=== PATIENT | male | born 1980 | race Caucasian/White ===

== ENCOUNTER → 2023-06-25 | Outpatient (CLI) | payer OTHER, SELFPAY ==
--- NOTE | 2023-06-25 11:55 | RAD_ITS ---
STUDY: X-RAY - LEFT KNEE REASON FOR EXAM: Male, 43 years old. Lateral knee pain. TECHNIQUE: 4 view(s) of the knee. COMPARISON: None. FINDINGS: Normal visualized distal femur. Normal visualized proximal tibia and fibula. Normal proximal tibiofibular articulation. Normal medial femorotibial compartment. Normal lateral femorotibial compartment. Normal patellofemoral articulation. The soft tissue structures are unremarkable. RAD/Knee 4 or More Views IMPRESSION: Normal x-ray examination of the knee. Electronically Signed: Lance Bonds MD at 12:36 EDT ,
== END | disposition home or self-care (01) ==
PROVIDERS: Referring Provider Physician Assistant; Visit Provider Physician Assistant
DX: S86.912A Strain of unspecified muscle(s) and tendon(s) at lower leg level, left leg, initial encounter (principal)
CPT/HCPCS: 73564

== ENCOUNTER → 2023-08-08 | Outpatient (CLI) | payer OTHER, SELFPAY ==
--- NOTE | 2023-08-08 12:46 | MRI_ITS ---
STUDY: MRI LEFT KNEE REASON FOR EXAM: Male, 43 years old. Pain from work related injury, twisting injury. Foot/knee stayed in position while body twisted in a different direction, anterior pain. Feels unattached. Crunching noises when bending. Constant ache with sudden sharp pains. No prior surgery. TECHNIQUE: Standardized fat and water weighted pulse sequences were obtained in all 3 orthogonal planes. COMPARISON: Left knee radiographs dated 06/25/2023. FINDINGS: There is a small horizontal-oblique undersurface tear of the posterior horn of the medial meniscus (coronal PD series 5 image 12). Normal hyaline cartilage of the medial femorotibial compartment. Normal medial femoral condyle and tibial plateau. Normal medial collateral ligamentous complex (MCL). Normal distal semimembranosus, gracilis and semitendinosus tendons. Normal lateral meniscus. There is focal chondromalacia along the posterior nonweightbearing surface of the lateral femoral condyle with underlying subchondral edema/cyst formation (axial T2 series 2 image 9; sagittal T2 series 4 image 18). Normal proximal tibiofibular articulation. Normal lateral collateral (fibular) ligament. Normal popliteus tendon. Normal biceps femoris tendon. Normal anterior cruciate ligament (ACL). Normal posterior cruciate ligament (PCL). Normal congruent patellofemoral articulation. Normal hyaline cartilage of the patellofemoral compartment. Normal medial and lateral patellar retinaculum. Normal quadriceps tendon. Normal patellar tendon. Normal Hoffa''s fat pad. There is a small volume joint effusion. There is no popliteal cyst. There is minimal prepatellar bursitis, with adjacent subcutaneous soft tissue edema (sagittal T2 series 4 images 8-12). There is no acute fracture. MRI/Lower Ext Joint Only (Routine) IMPRESSION: Small horizontal-oblique undersurface tear of the posterior horn of the medial meniscus. Focal chondromalacia along the posterior nonweightbearing surface of the lateral femoral condyle with underlying subchondral edema/cyst formation. Small joint effusion. Minimal prepatellar bursitis, with adjacent subcutaneous soft tissue edema. Electronically Signed: Kali Mann MD at 14:26 EDT ,
== END | disposition home or self-care (01) ==
PROVIDERS: PCP Family Medicine; Referring Provider Physician Assistant; Visit Provider Physician Assistant
DX: S86.912A Strain of unspecified muscle(s) and tendon(s) at lower leg level, left leg, initial encounter (principal)
CPT/HCPCS: 73721

== ENCOUNTER 2023-09-14 09:30 | Outpatient (RCR) | payer OTHER, SELFPAY ==
--- NOTE | 2023-08-15 10:45 | HP.PTEVAL_ITS ---
Patient's Visit Information Visit Information Visit Information: JOSE JOHNSON is a 43 year old M referred to Physical Therapy by Dr. Crow Almendarez MD with a diagnosis of L knee meniscal tear.. Date of Evaluation: 08/15/23 Physical Therapist: Albino Newell, DPT, OCS, CSCS Visit Plan Frequency: 3x /Week Duration: 4-6 Weeks Plan: 3x/week for 4-6 weeks for... 1. ROM L knee and patella mobs 2. stretch HS and gastroc and quad to tolerance 3. strength L hip and knee and progression of funciton, walking, steps to tolerance May need TENS and ice and STM quad/HS until pain subsides. Pt having injection 08/16 which will determine his needs. 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 That was 06/21/23. Kept working. End of day was bad pain. and swollen. Went to doctor 4 days later and was still having a hard time walking. [facility] and they x ray and MRI whcih took 6 weeks. Saw damien due to tear in L knee meniscus. Been home waiting since the injury. Has been more tolerable. 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 Pain in last week is constant 6/10 medial front of knee. Sleep is not a problem. Spends day cleaning and running kids around. Doing some upper body. Enjoys boating and riding [place] but unable right now. has been able to do a little hunting. Damien wants PT and cortisone shots. PT does not want immediate surgery. Will get injection tomorrow. Pain L knee: Pain Intensity (Out of 10): 5 Pain Intensity Range: 5 and 6 Objective Objective: Walks with L antalgia and avoiding heel strike today but I and safe on firm surface, brace on and dons and doffs I. Tender to touch medial joint line and tristin medially. Steps are R LE only and needs rail, feels unsafe using L. patella movement tender on l and cautious. hip and ankle AROM WFL, knee AROM L 0-110, R knee 0-130. L knee hurts with extension end range and self limited at end range flexion due to pain. + bounce home - ant drawer, - post sag. reflexes 1/3 patella and achilles B sensation WNL to gross light touch. \strength hip flexion 4- L and 4 R, abd and ext 4- B. knee flexion 3+ L and 4 R, knee extension 3 L and 4+ on right. ankle strength 5/5 B in all 4 motions. Tightness present in HS and gastroc B. Balance/Special Test Scores Lower Extremity Functional Score: 38 Goals Goal 1:: 0-130+ L knee AROM without pain Goal Time Frame: 4-6 Weeks Goal 2:: Walk without antalgia and steps reciprocally without pain Goal Time Frame: 4-6 Weeks Goal 3:: I appropriate HEp to [facility] rehab progress Goal Time Frame: 4-6 Weeks Goal 4:: LEFS 60 Goal Time Frame: 4-6 Weeks Goal 5:: Pt ready to return to work Goal Time Frame: 4-6 Weeks Rehabilitation Potential Physical Therapy Diagnosis: L knee limited ROM, pain and weakness due to meniscal tear. Rehabilitation Potential: Questionable Anticipated Interventions Patient/Client Instruction: Educate patient on: Condition and Plan of Care For the Purpose of:: To decrease pain, To increase ROM, To improve nutrient delivery to tissue, To improve muscle performance and motor function, To increase tolerance to activity/condition/position and To improve gait and locomotor functions Therapeutic Exercise to Include: Strength training, Flexibilty training, Gait and locomotor training, Passive ROM and Active ROM For the Purpose of:: To decrease pain, To increase ROM, To improve nutrient delivery to tissue, To improve muscle performance and motor function, To increase tolerance to activity/condition/position, To improve ability of physical actions for home/community/work/leisure and To improve gait and locomotor functions Manual Therapy Techniques to Include: Mobilization and Soft tissue mobilization For the Purpose of:: To increase ROM TENS: Yes Cryotherapy (ice pack, ice massage): Yes For the Purpose of:: To decrease pain, To decrease swelling/inflammation, To increase ROM and To improve nutrient delivery to tissue Text: Thank you for the opportunity to evaluate your patient. For Medicare and Medicare HMO plans, please review the plan of care and approve it. It will need to be FAXED BACK to us at [phone] for Medicare purposes. For Medicare only, by signing this I certify the plan of care. Please let me know if there are questions or concerns regarding this plan of care. Physician Signature: Date:
--- NOTE | 2023-09-14 10:24 | HP.PTREVAL_ITS ---
Re-Evaluation Intro: Dr. Crow Almendarez MD, It has been my pleasure to treat JOSE JOHNSON over the last 9 visits for L knee meniscal tear.. Please see the progress note below for an update on the physical therapy plan of care! Subjective Subjective: Angry today. Has a catch point when he moves into flexion or extension. Pain is typically 4/10 most of time. Worse today. Saw doctr a week ago, wants another month of PT to avoid surgery. Injection helped pain but constant toothache pain still there. Objective Objective/Function: walks with L antalgia. Very painful with traction to L knee. , Painful end range of extension but able. Flexion hurts at 110 but can get to 126 today, hurts to come off of flexion with wincing. Steps can be reciprocal but painful to corin L. overall better but slow and still overly painful at rest and with certain movements. Goals appropriate for 4 more weeks with questionable prognosis. Plan Plan Plan: 3x/week for 4 more weeks if approval gained for 1. strength, avoid excessive HS strength to see if menisucus will heal, may do isometric HS gently. 2. continue ROM L knee and modalities including ice adn stim if painful at rest Pt is to avoid aggravating activities await new c9 and call wehn approved. Balance/Gait/Functional tests Balance/Special Test Scores Lower Extremity Functional Score: 25 Goals Goals Goal 1:: 0-130+ L knee AROM without pain Goal Time Frame: 4-6 Weeks Goal Progress: Progressing Goal 2:: Walk without antalgia and steps reciprocally without pain Goal Time Frame: 4-6 Weeks Goal Progress: Not Progressing Goal 3:: I appropriate HEp to [facility] rehab progress Goal Time Frame: 4-6 Weeks Goal Progress: Progressing Goal 4:: LEFS 60 Goal Time Frame: 4-6 Weeks Goal Progress: Not Progressing Goal 5:: Pt ready to return to work Goal Time Frame: 4-6 Weeks Anticipated Interventions Anticipated Interventions Patient/Client Instruction: Educate patient on: Condition and Plan of Care For the Purpose of:: To decrease pain, To increase ROM, To improve nutrient delivery to tissue, To improve muscle performance and motor function, To increase tolerance to activity/condition/position and To improve gait and locomotor functions Therapeutic Exercise to Include: Strength training, Flexibilty training, Gait and locomotor training, Passive ROM and Active ROM For the Purpose of:: To decrease pain, To increase ROM, To improve nutrient delivery to tissue, To improve muscle performance and motor function, To increase tolerance to activity/condition/position, To improve ability of physical actions for home/community/work/leisure and To improve gait and locomotor functions Manual Therapy Techniques to Include: Mobilization and Soft tissue mobilization For the Purpose of:: To increase ROM TENS: Yes Cryotherapy (ice pack, ice massage): Yes For the Purpose of:: To decrease pain, To decrease swelling/inflammation, To increase ROM and To improve nutrient delivery to tissue Re-Evaluation Ending Re-evaluation ending: Please do not hesitate to contact me at [phone] by phone or if you have questions or concerns regarding this new plan of care! Sincerely, Albino Newell, DPT, OCS, CSCS
--- NOTE | 2023-10-29 08:27 | HP.PTDCNRP_ITS ---
Patient Information Patient Information: JOSE JOHNSON was seen in my office for initial evaluation on 08/15/23. The following Plan of Care was established for this patient: POC Established Initial Frequency: 3x /Week Initial Duration: 4-6 Weeks Anticipated Interventions Patient/Client Instruction: Educate patient on: Condition and Plan of Care For the Purpose of:: To decrease pain, To increase ROM, To improve nutrient delivery to tissue, To improve muscle performance and motor function, To increase tolerance to activity/condition/position and To improve gait and lo comotor functions Therapeutic Exercise to Include: Strength training, Flexibilty training, Gait and locomotor training, Passive ROM and Active ROM For the Purpose of:: To decrease pain, To increase ROM, To improve nutrient delivery to tissue, To improve muscle performance and motor function, To increase tolerance to activity/condition/position, To improve ability of physical actions for home/community/work/leisure and To improve gait and locomotor functions Manual Therapy Techniques to Include: Mobilization and Soft tissue mobilization For the Purpose of:: To increase ROM TENS: Yes Cryotherapy (ice pack, ice massage): Yes For the Purpose of:: To decrease pain, To decrease swelling/inflammation, To increase ROM and To improve nutrient delivery to tissue Last Seen Last Seen: This patient was last seen in our office 09/14/23. Pertinent comments regarding their Physical therapy will appear below: Pt seen 9 visits according to c9 and was 50% better. he was to see doctor in an attempt to get a new c9 but did not receive further approval or scheudle any further visits of POC. At this point, it has been over 6 weeks and I will discontinue At this point I will be discontinuing this patient from physical therapy. I would be happy to see this patient again in the future if found appropriate by the physician. Thank you! Albino Newell, DPT, OCS, CSCS Balance/Gait/Functional tests Balance/Special Test Scores Lower Extremity Functional Score: 25
== END 2023-09-14 19:00 | disposition home or self-care (01) ==
LOC: PT 09:30
PROVIDERS: PCP Family Medicine; Referring Provider Orthopaedic Surgery Sports Medicine; Visit Provider Orthopaedic Surgery Sports Medicine
DX: S86.912D Strain of unspecified muscle(s) and tendon(s) at lower leg level, left leg, subsequent encounter (principal)
CPT/HCPCS: 97014; 97110; 97161; 97530; G0283

== ENCOUNTER 2023-11-07 10:58 | Day surgery (SDC) | payer OTHER, SELFPAY ==
[2023-11-07] VITALS (13 sets, daily range): BP systolic 127–168; BP diastolic 88–139; PULSE 79–101; RESP 14–16; TEMP 36.1–36.9; O2SAT 92–99; BMI 34.1
--- NOTE | 2023-11-07 | BUR_PTH ---
PATHOLOGY RESULTS PATIENT: JOSE JOHNSON LOC: [facility] [place] U#:[id number] AGE/SX: 43/M ROOM: RE11/07/[address]: Dr. Crow Almendarez MD : 1980 BED: DIS: 11/07/2023 SPEC #: [id number] RECD: 11/07/23 15:46 STATUS: GRACE RETanvir #: [id number] GUERO: 11/07/23 00:[address]: Crow Almendarez DEPT: SURGICAL PATHOLOGY RECD BY: Pablito Ge ENTERED: 11/08/23 08:46 SP TYPE: BURSA OT DR: Dr. Omar Mercado, Tissues: Bursa, NOS Procedures: Surgery Specimen Level III HEADER OPERATION: Left knee arthroscopy, debridement of prepatellar bursa PRE-OP DIAGNOSIS: Tear of left knee medial meniscus, left knee pain, stain of left knee, left prepatellar bursitis TISSUE SUBMITTED: Left prepatellar bursa MICROSCOPIC DIAGNOSIS Left prepatellar bursa, biopsy: Fibrosis with focal collagenization. No evidence of inflammation. AM:rosa 11/09/2023 MICROSCOPIC DESCRIPTION Slides are reviewed. GROSS DESCRIPTION Received in fixative is one container labeled with the patient's name and designated left prepatellar bursa. The specimen consists of three variable sized pieces of ahumada-light yellow soft, indurated tissue measuring in aggregate 2.5 x 2.0 x 0.3 cm. The entire specimen is submitted in one cassette. / SJ:rosa 11/08/2023 TC:5 CPT: 88636
--- NOTE | 2023-11-07 11:46 | PCM.HP.STD ---
HPI - General HPI Narrative JOSE JOHNSON, is a 43 M who presents for left knee arthroscopy, debridement prepatellar bursa, medial meniscus partial meniscectomy possible repair. rab, post op restrictions if repair 6 weeks wb in extension, and narcotic counselling. left knee marked. ok to proceed. no changes to h and p. MR#: [id number] Acct: [id number] Name: JOSE JOHNSON Rep #: [id number] : 1980 Provider: Dr. Crow Almendarez MD Age/Sex: 43/M [place] [facility] [place] Status: Signed Intake Vital Signs 08/14/2311:08 Height 5 ft 10 in Intake Visit Reasons: LEFT KNEE Chief Complaint: left knee Is patient in pain?: Yes Pain scale (1-10): 5 Allergies No Known Allergies Allergy (Verified 10/04/23 09:24) Medications NK 06/25/23 [History Confirmed 10/04/23] [facility] Medical History (Updated 10/04/23 @ 09:43 by Crow Almendarez MD) Bursitis, prepatellar, left Chronic neck and back pain Fatigue Left knee pain Shoulder pain Strain of left knee Tear of medial meniscus of left knee Social History household members: children Smoking Status: Current some day smoker tobacco type: smokeless tobacco alcohol intake: current alcohol intake frequency: a few times a month Alcohol type: beer and hard liquor HPI LEFT KNEE Details: This documentation accurately reflects the service provided and the decisions made by me, Dr. Crow Almendarez MD 10/04/23 0807. Part of today?s visit was documented by [ ], acting as scribe. JOSE JOHNSON is a 43 year old M here today for L knee pain, MM tear, comp claim, FU about 8 weeks since the injection. About 3 months since original injury. Patient is still having pain at the prepatellar area as well as medially like a crescent shaped . Patient continues to have mechanical symptoms and only minimal relief from the cortisone injection. Worse to bend the knee or kneel down. The physical therapy C9 was still pending approval according to the patient has not gone back in for therapy. Ortho Exam General General: Yes no acute distress Neurologic: Yes alert and Yes oriented x3 Psychologic: Yes reasonable and appropriate Right Knee Patella Translation: 2 Left Knee Skin/Wound: Yes CDI, No ecchymosis, No erythema and Yes swelling (mild prepatellar) Contralateral Normal: Yes Knee ROM: Yes ROM-Flexion 0-140 Examination: Yes med jt line tenderness, No Lat jt line tenderness, Yes TTP inf pole patella, Yes Crepitus, Yes Pain with flexion, Yes Ave's Test, Yes TTP Patellar tendon, No TTP Tibial tubercle, No TTP Pes Anserine and No Illiotibial band tenderness Quad Atrophy: No Stability: NML: Anterior Drawer, NML: Nancy, NML: Posterior Drawer, NML: Valgus 0, NML: Valgus 30, NML: Varus 0 and NML: Varus 30 Apprehension with Lateral Translation: No Patella Translation: 2 Patellar Tilt Normal: Yes Patella Grind: No KNEE: click at PF joint going into extension, nvi, normal gait and alignment, well conditioned individual Supplemental Info [facility] [address] [place] [id number] Lower Ext Joint Only (Routine) MR#: [id number] Acct: [id number] Name: JOSE JOHNSON Rep #: [id number] : 1980 M 43 From: Kali Mann MD PCP: Dr. Omar Mercado, DO Status: REG CLI Study: Lower Ext Joint Only (Routine) Date of Exam: 08/08/23 Exam# [id number] Ordering Dr: Prashant Garces STUDY: MRI LEFT KNEE REASON FOR EXAM: Male, 43 years old. Pain from work related injury, twisting injury. Foot/knee stayed in position while body twisted in a different direction, anterior pain. Feels unattached. Crunching noises when bending. Constant ache with sudden sharp pains. No prior surgery. TECHNIQUE: Standardized fat and water weighted pulse sequences were obtained in all 3 orthogonal planes. COMPARISON: Left knee radiographs dated 06/25/2023. FINDINGS: There is a small horizontal-oblique undersurface tear of the posterior horn of the medial meniscus (coronal PD series 5 image 12). Normal hyaline cartilage of the medial femorotibial compartment. Normal medial femoral condyle and tibial plateau. Normal medial collateral ligamentous complex (MCL). Normal distal semimembranosus, gracilis and semitendinosus tendons. Normal lateral meniscus. There is focal chondromalacia along the posterior nonweightbearing surface of the lateral femoral condyle with underlying subchondral edema/cyst formation (axial T2 series 2 image 9; sagittal T2 series 4 image 18). Normal proximal tibiofibular articulation. Normal lateral collateral ( fibular ) ligament. Normal popliteus tendon. Normal biceps femoris tendon. Normal anterior cruciate ligament (ACL). Normal posterior cruciate ligament (PCL). Normal congruent patellofemoral articulation. Normal hyaline cartilage of the patellofemoral compartment. Normal medial and lateral patellar retinaculum. Normal quadriceps tendon. Normal patellar tendon. Normal Hoffa''s fat pad. There is a small volume joint effusion. There is no popliteal cyst. There is minimal prepatellar bursitis, with adjacent subcutaneous soft tissue edema (sagittal T2 series 4 images 8-12). There is no acute fracture. MRI/Lower Ext Joint Only (Routine) IMPRESSION: Small horizontal-oblique undersurface tear of the posterior horn of the medial meniscus. Focal chondromalacia along the posterior nonweightbearing surface of the lateral femoral condyle with underlying subchondral edema/cyst formation. Small joint effusion. Minimal prepatellar bursitis, with adjacent subcutaneous soft tissue edema. Electronically Signed: Kali Mann MD at 14:26 EDT , Coding Level of Care Code Off vis,est,level 3 Diagnoses Tear of medial meniscus of left knee S83.242A Left knee pain M25.562 Strain of left knee S86.912A Bursitis, prepatellar, left M70.42 Assessment and Plan Assessment and Plan (1) Tear of medial meniscus of left knee: Status: Acute Plan: JOSE JOHNSON is a 43 year old M here today for L knee pain, MM tear, prepatellar bursitis... comp claim, FU about 8 weeks since the injection. About 3 months since original injury. Patient has had a reasonable trial of conservative management including 6 weeks of physical therapy and an intra-articular cortisone injection. Patient is wondering about next steps. My opinion surgical management of this would be left knee arthroscopy, debridement prepatellar bursa, medial meniscus partial meniscectomy possible repair. 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 The patient understands wished to proceed with surgery. He had no further questions and signed a consent form for surgery as well as possible need for blood products. Pros and cons risks and benefits were discussed with the patient including but not limited to infection, pain, stiffness, bleeding, damage to surrounding structures, neurovascular injury, recurrence or retear, failure or wear of hardware or fixation, instability, fracture, deep vein thrombosis and pulmonary embolism, anesthetic risks, , patient dissatisfaction, need for further surgery and other risks. Patient understood and wished to proceed with surgery, and signed the informed consent documentation. (2) Left knee pain: Status: Acute (3) Strain of left knee: Status: Acute (4) Bursitis, prepatellar, left: Status: Acute [facility] Medical History (Updated 10/25/23 @ 13:26 by Carole Dumont) Alcohol use Bursitis, prepatellar, left Fatigue Former smoker History of pain when walking History of steroid therapy Injury of head and neck Left knee pain Leg cramps Shoulder pain Strain of left knee Tear of medial meniscus of left knee Wears contact lenses Home Medications NK 06/25/23 [History Last Taken Unknown] Allergy/AdvReac Type Severity Reaction Status Date / Time No Known Allergies Allergy Verified 11/07/23 11:40 Surgical History (Updated 10/25/23 @ 13:26 by Carole Dumont) No history of previous surgery Social History household members: children Smoking Status: Former smoker alcohol intake: current alcohol intake frequency: a few times a month Alcohol type: beer and hard liquor Vital Signs Vital Signs Vital Signs: 11/07/23 11:41 11/07/23 11:41 Temperature 98.5 F Temperature Source Temporal Pulse Rate 79 Respiratory Rate 16 Respiratory Pattern Normal Blood Pressure Source Monitor Blood Pressure Position Semi-Fowlers Blood Pressure Location Left Arm Pulse Ox 98 Oxygen Delivery Method Room Air Weight Weight: 238 lb 1.588 oz Body Mass Index (BMI) 34.1
[2023-11-07] MEDS: Lactated Ringers 1,000 ML 15 ML IV (11:50)
[2023-11-07] MEDS: Cefazolin 2 GM in 0.9% Normal Saline (100mL Bag) 100 ML IV (12:06)
[2023-11-07] MEDS: Epinephrine (1 mg/ml) 1 MG/ML VIAL (12:45)
[2023-11-07] MEDS: Bupivacaine 0.25% 30 ML Vial (13:29)
--- NOTE | 2023-11-07 13:40 | OP.PCM_ITS ---
Problems Associated Problem List Diagnoses (1) Tear of medial meniscus of left knee: (2) Left knee pain: (3) Bursitis, prepatellar, left: Report of Operation Date of Procedure: 11/07/23 Pre-Operative Diagnosis: L knee medial meniscus tear, prepatellar bursitis Post-Operative Diagnosis: same Surgery/Procedure Performed:: L knee arthroscopy, debridement prepatellar bursa, repair medial meniscus Description of Surgical Findings:: horizontal posterior horn and mid body medial meniscus tear, prepatellar bursitis Surgeon: Crow Almendarez Type of Anesthesia: General and Local Anesthesiologist: Albino Downs Estimated Blood Loss (mL): 25 Description of Procedure: Patient brought the operating room theater. Placed supine on the table. General anesthesia induced. 2 g IV Ancef administered prior to start of procedure. Left lower extremity prepped and draped in usual sterile fashion. Stress positioner to patient's left side. Tourniquet applied to the thigh appropriately padded. SCD on the nonoperative leg. Prep solution chlorhexidine based was allowed to thoroughly dry over 3 minutes prior to draping. Preoperative timeout performed confirm the site patient and the surgery. I began by elevating the limb inflated tourniquet to 250 mmHg. Standard anterolateral and anteromedial arthroscopy portals as well as accessory anterolateral and anteromedial arthroscopy portals. Did a full diagnostic arthroscopy. Gutters entered no loose bodies. Cartilage in all 3 compartments was normal. Lateral meniscus was normal stable no tears solid to probing. ACL and PCL appeared normal debrided the ligamentum mucosum. Medial meniscus at the mid body extending towards the posterior horn there is a horizontal tear. This was slightly oblique in nature. The anterior and posterior roots were stable. I elected to do a meniscus repair rather than meniscectomy as that would have compromised the hoop stresses of the meniscus and been quite a bit of an excision. I used a meniscus rasp to stimulate healing at the tear site. I then used the Arthrex fiber stitch all inside meniscus implants to perform 5 vertical mattress sutures along the length of the tear. Tear was stable and solid. Case terminated arthroscopy x-rays and taken throughout the system and saved. I then turned my attention to the prepatellar bursectomy. Made a small anterior longitudinal incision over the prepatellar bursa area in the midline. Carried dissection down through skin and subcutaneous tissue to meticulous hemostasis. Excised the prepatellar bursa and sent this away for pathology. This was white tissue fairly firm in nature. Tourniquet let down hemostasis achieved wound thoroughly irrigated. Subcutaneous tissue closed with 2-0 Vicryl suture and skin with 3-0 Monocryl. 10 cc of quarter percent bupivacaine for local anesthesia was used. Skin cleaned with wet dry dressing complication of Steri- Strips Adaptic 4 x 4 gauze ABD dressing Anthony wrap and a hinged knee brace locked in full extension. Patient woken up from a general anesthetic transferred off the operating table and taken postanesthetic PACU. All sponge needle instrument counts were correct no complications. Plan to the patient weightbearing as tolerated in full extension passive range of motion with physical therapy only 0 to 90 degrees for the first 6 weeks. cpt 82725 and [id number]? Grafts/Implants Used: arthrex fiberstitch Complications none Admit VTE Documentation VTE Present on Admission: No VTE Mechan Device Prophylaxis: SCD's VTE Pharm Prophylaxis ordered?: No Reason prophylaxis not ordered:: Treatment Not Indicated Procedures Musculoskeletal [id number]: Other Procedure See Report
--- NOTE | 2023-11-07 13:50 | DCINST_ITS ---
Discharge Instructions Diet Discharge Diet: No restrictions Activity Discharge Activity: Use Crutches Weight Bearing Status: Weight bearing as tolerated Lifting Restrictions: WBAT in brace in full extension only (straight) +passive ROM 0-90 with PT Keep extremity elevated above heart level: Operative Extremity Dressing / Incision Call your doctor if your incision/area has: Continuous Slow Oozing, Sudden Increased Bleeding, Increased Pain/ Swelling, Increased Redness, Foul Smelling Discharge and Swelling at the incision site Change Dressing in: 2 days Cleanse incision/area with: Do not get Incision Wet Follow Up Care Please Follow Up With: Crow Almendarez MD When: 2 days Test Results: Test results from this visit will be discussed in further detail at your follow- up appointment, if applicable. Discharge Plan Admission Attending Provider: Crow Almendarez Primary Care Provider: Omar Mercado Instructions Patient Instructions: After Knee Arthroscopy Discharge Orders/Prescriptions Prescriptions: New oxycodone-acetaminophen [Percocet] 5-325 mg tablet 1 tab PO Q4H MDD 6 PRN (Reason: pain) 4 Days Qty: 20 0RF Referrals / Follow Up: Omar Mercado DO [Primary Care Provider] - Crow Almendarez MD [Med Staff - Active Staff] - Disposition Disposition (needs filled in before D/C Order can be placed): Home, Self Care
[2023-11-07] MEDS: Oxycodone/Apap 5/325 Tablet PO (15:12)
== END 2023-11-07 15:56 | disposition home or self-care (01) ==
LOC: SDC 10:59 → AC 11:00
PROVIDERS: PCP Family Medicine; Referring Provider Family Medicine; Visit Provider Orthopaedic Surgery Sports Medicine
PROC: (CPT 29870; principal; 2023-11-07 12:20)
DX: S83.242D Other tear of medial meniscus, current injury, left knee, subsequent encounter (principal); M70.42 Prepatellar bursitis, left knee; M94.262 Chondromalacia, left knee; M25.562 Pain in left knee; S86.912D Strain of unspecified muscle(s) and tendon(s) at lower leg level, left leg, subsequent encounter; Z87.891 Personal history of nicotine dependence; K21.9 Gastro-esophageal reflux disease without esophagitis
CPT/HCPCS: 29882; 29877; 01400; 88304; C1713; J7120; J2405

== ENCOUNTER 2023-12-19 09:30 | Outpatient (RCR) | payer OTHER, SELFPAY ==
--- NOTE | 2023-11-21 11:36 | HP.PTEVAL ---
Patient's Visit Information Visit Information Visit Information: JOSE JOHNSON is a 43 year old M referred to Physical Therapy by Dr. Crow Almendarez MD with a diagnosis of OTHER MEDIAL MENISCUS ,CURRENT INJURY ,LEFT KNEE ,PREPATELLAR BURSITIS. . Date of Evaluation: 11/21/23 Physical Therapist: Moisés Drake, PT, Cert MDT, OCS Visit Plan Frequency: 3x /Week Duration: 6 Weeks Plan: * s/p left knee arthroscopy debridement prepatellar bursa and repair medial meniscus on 11/07 * *WBAT with brace in extension ,okay ROM 0-90 degrees * *SEE GUIDLINES FOR PRGRESSION* PT INTERVTIONS ROM 90 DEGREES OPEN CHAIN 6WEEKS ,MAT EXERCISES(,PATEALLA MOBS , PROGRESSION TO STRENGTHNEING QUADS /HAMS/HIP CLOSED CHAIN 6 WEEKS , GAUT /BALANCE TRAINING ,,BIKE AND CP Subjective Subjective: This 43 y/o male presents to physical therapy with with left knee medial meniscus repair with debridement prepatellar bursitis on at [facility] by Erickson and d/c DOS with crutches with WBAT. Patient seen yesterday wean from crutches brace locked in extension with gait and at all times even sleeping ,okay ROM to 90 degrees . Removing for ice and bathing . Patient stopped Percocet. Patient initially injury at work Jul 11 picking lynette hammer and turning felt tearing. [facility] then f/u with Dr. Almendarez and tried ~ 1month PT . Patient had MRI showed meniscus tear. Patient uses ice for pain edema. Sleeping okay. Patient has difficulty with all ADLS and function and unable to RTW. RTD 12/17/23. Patient condition affects QOL and function and RTW. Patient goals to RTW. SOCIAL: VOCATION: Labor heavy Highway construction Pain Left Knee: Pain Intensity (Out of 10): 4 Pain Intensity Range: 10 Objective Objective: POSTURE: WFL GAIT: ambulates with WBAT LLE with locked in extension SKIN ICISION : well approximate EDEMA: joint line 41 cm 6 ABOVE JOINT LINE: 48.5 cm AROM: 0-70 degrees supine knee flexion MMT: ( PEAK FORCE) 0 NT STAIRS : one step at time PATELLA MOBILITY: mod tight superior/inferior and medial/lateral glides Balance/Special Test Scores Lower Extremity Functional Score: 25 Goals Goal 1:: Patient to be I with HEP for meniscus repair Goal Time Frame: 8-12 Weeks Goal 2:: Patient to improve AROM 0-135 degrees supine knee flexion for stairs Goal Time Frame: 8-12 Weeks Goal 3:: Patient to normalize gait to RTW Goal Time Frame: 8-12 Weeks Goal 4:: Patient to improve peak force quads/hams by 25-30 # strength to improve function and RTW Goal Time Frame: 8-12 Weeks Goal 5:: Patient to improve LFES score by 15-20 points to improve QOL and RTW Goal Time Frame: 8-12 Weeks Goal 6:: Patient to demonstrate 75 % improvement with function and RTW Goal Time Frame: 8-12 Weeks Rehabilitation Potential Physical Therapy Diagnosis: This patient underwent s/p left knee arthroscopy debridement prepatellar bursa and repair medial meniscus on 12/08 with knee brace locked in extension 6 weeks and WBAT LLE brace locked in extension thus impairments with decrease ROM ,weakness ,decrease gait and RTW thus benefit from PT Rehabilitation Potential: Good Anticipated Interventions Patient/Client Instruction: Educate patient on: Condition and Plan of Care For the Purpose of:: To decrease pain, To increase ROM, To improve muscle performance and motor function, To improve ability to perform ADL's, To increase tolerance to activity/condition/position, To improve performance and independence with ADL's, To improve ability of physical actions for home/community/work/leisure, To improve gait and locomotor functions, To improve health of tissue, To decrease soft tissue restriction, To improve balance and Other Other: RTW Therapeutic Exercise to Include: Strength training, Endurance training, Balance training, Flexibilty training, Gait and locomotor training, Passive ROM and Active ROM Comment: QUADS/HAMS/HIP For the Purpose of:: To decrease pain, To increase ROM, To improve muscle performance and motor function, To increase tolerance to activity/condition/position, To improve performance and independence with ADL's, To improve ability of physical actions for home/community/work/leisure, To improve gait and locomotor functions, To improve health of tissue, To decrease soft tissue restriction, To increase flexibility/ROM, To improve endurance, To improve balance and Other Other: RTW TENS: Yes IF ES: Yes Cryotherapy (ice pack, ice massage): Yes Thermo therapy (hot pack): Yes Ultrasound (thermal/non thermal): Yes For the Purpose of:: To decrease pain, To increase ROM, To improve health of tissue and To decrease soft tissue restriction Text: Thank you for the opportunity to evaluate your patient. For Medicare and Medicare HMO plans, please review the plan of care and approve it. It will need to be FAXED BACK to us at [phone] for Medicare purposes. For Medicare only, by signing this I certify the plan of care. Please let me know if there are questions or concerns regarding this plan of care. Physician Signature: Date:
--- NOTE | 2023-11-23 08:24 | HP.PTEVAL_ITS ---
Patient's Visit Information Visit Information Visit Information: JOSE JOHNSON is a 43 year old M referred to Physical Therapy by Dr. Crow Almendarez MD with a diagnosis of OTHER MEDIAL MENISCUS ,CURRENT INJURY ,LEFT KNEE ,PREPATELLAR BURSITIS. Date of Evaluation: 11/21/23 Physical Therapist: Moisés Drake, PT, Cert MDT, OCS Visit Plan Frequency: 3x /Week Duration: 6 Weeks Plan: * s/p left knee arthroscopy debridement prepatellar bursa and repair medial meniscus on 11/07 * *WBAT with brace in extension ,okay ROM 0-90 degrees * *SEE GUIDLINES FOR PRGRESSION* PT INTERVTIONS ROM 90 DEGREES OPEN CHAIN 6WEEKS,MAT EXERCISES(,PATEALLA MOBS , PROGRESSION TO STRENGTHNEING QUADS /HAMS/HIP CLOSED CHAIN 6 WEEKS (0-60 DEGREES) , GAIT /BALANCE TRAINING ,,BIKE AND CP Subjective Subjective: This 43 y/o male presents to physical therapy with with left knee medial meniscus repair with debridement prepatellar bursitis on at [facility] by Erickson and d/c DOS with crutches with WBAT. Patient seen yesterday wean from crutches brace locked in extension with gait and at all times even sleeping ,okay ROM to 90 degrees . Removing for ice and bathing . Patient stopped Percocet. Patient initially injury at work Jul 11 picking lynette hammer and turning felt tearing. [facility] then f/u with Dr. Almendarez and tried ~ 1month PT . Patient had MRI showed meniscus tear. Patient uses ice for pain edema. Sleeping okay. Patient has difficulty with all ADLS and function and unable to RTW. RTD 12/17/23. Patient condition affects QOL and function and RTW. Patient goals to RTW. SOCIAL: VOCATION: Labor heavy Highway construction Pain Left Knee: Pain Intensity (Out of 10): 4 Pain Intensity Range: 10 Objective Objective: POSTURE: WFL GAIT: ambulates with WBAT LLE with locked in extension SKIN ICISION : well approximate EDEMA: joint line 41 cm 6 ABOVE JOINT LINE: 48.5 cm AROM: 0-70 degrees supine knee flexion MMT: ( PEAK FORCE) 0 NT STAIRS : one step at time PATELLA MOBILITY: mod tight superior/inferior and medial/lateral glides Balance/Special Test Scores Lower Extremity Functional Score: 25 Goals Goal 1:: Patient to be I with HEP for meniscus repair Goal Time Frame: 8-12 Weeks Goal 2:: Patient to improve AROM 0-135 degrees supine knee flexion for stairs Goal Time Frame: 8-12 Weeks Goal 3:: Patient to normalize gait to RTW Goal Time Frame: 8-12 Weeks Goal 4:: Patient to improve peak force quads/hams by 25-30 # strength to improve function and RTW Goal Time Frame: 8-12 Weeks Goal 5:: Patient to improve LFES score by 15-20 points to improve QOL and RTW Goal Time Frame: 8-12 Weeks Goal 6:: Patient to demonstrate 75 % improvement with function and RTW Goal Time Frame: 8-12 Weeks Rehabilitation Potential Physical Therapy Diagnosis: This patient underwent s/p left knee arthroscopy debridement prepatellar bursa and repair medial meniscus on 12/08 with knee brace locked in extension 6 weeks and WBAT LLE brace locked in extension thus impairments with decrease ROM ,weakness ,decrease gait and RTW thus benefit from PT Rehabilitation Potential: Good Anticipated Interventions Patient/Client Instruction: Educate patient on: Condition and Plan of Care For the Purpose of:: To decrease pain, To increase ROM, To improve muscle performance and motor function, To improve ability to perform ADL's, To increase tolerance to activity/condition/position, To improve performance and independence with ADL's, To improve ability of physical actions for home/community/work/leisure, To improve gait and locomotor functions, To improve health of tissue, To decrease soft tissue restriction, To improve balance and Other Other: RTW Therapeutic Exercise to Include: Strength training, Endurance training, Balance training, Flexibilty training, Gait and locomotor training, Passive ROM and Active ROM Comment: QUADS/HAMS/HIP For the Purpose of:: To decrease pain, To increase ROM, To improve muscle performance and motor function, To increase tolerance to activity/condition/position, To improve performance and independence with ADL's, To improve ability of physical actions for home/community/work/leisure, To improve gait and locomotor functions, To improve health of tissue, To decrease soft tissue restriction, To increase flexibility/ROM, To improve endurance, To improve balance and Other Other: RTW TENS: Yes IF ES: Yes Cryotherapy (ice pack, ice massage): Yes Thermo therapy (hot pack): Yes Ultrasound (thermal/non thermal): Yes For the Purpose of:: To decrease pain, To increase ROM, To improve health of tissue and To decrease soft tissue restriction Text: Thank you for the opportunity to evaluate your patient. For Medicare and Medicare HMO plans, please review the plan of care and approve it. It will need to be FAXED BACK to us at [phone] for Medicare purposes. For Medicare only, by signing this I certify the plan of care. Please let me know if there are questions or concerns regarding this plan of care. Physician Signature: Date:
--- NOTE | 2024-02-06 10:55 | HP.PTDCNRP_ITS ---
Patient Information Patient Information: JOSE JOHNSON was seen in my office for initial evaluation on 11/21/23. The following Plan of Care was established for this patient: POC Established Initial Frequency: 3x /Week Initial Duration: 6 Weeks Anticipated Interventions Patient/Client Instruction: Educate patient on: Condition and Plan of Care For the Purpose of:: To decrease pain, To increase ROM, To improve muscle performance and motor function, To improve ability to perform ADL's, To increase tolerance to activity/condition/position, To improve performance and ind ependence with ADL's, To improve ability of physical actions for home/community/work/leisure, To improve gait and locomotor functions, To improve health of tissue, To decrease soft tissue restriction, To improve balance and Other Other: RTW Therapeutic Exercise to Include: Strength training, Endurance training, Balance training, Flexibilty training, Gait and locomotor training, Passive ROM and Active ROM For the Purpose of:: To decrease pain, To increase ROM, To improve muscle performance and motor function, To increase tolerance to activity/condition/position, To improve performance and independence with ADL's, To improve ability of physical actions for home/community/work/leisure, To improve gait and locomotor functions, To improve health of tissue, To decrease soft tissue restriction, To increase flexibility/ROM, To improve endurance, To improve balance and Other Other: RTW TENS: Yes IF ES: Yes Cryotherapy (ice pack, ice massage): Yes Thermo therapy (hot pack): Yes Ultrasound (thermal/non thermal): Yes For the Purpose of:: To decrease pain, To increase ROM, To improve health of tissue and To decrease soft tissue restriction Last Seen Last Seen: This patient was last seen in our office . Pertinent comments regarding their Physical therapy will appear below: Patient was seen for PT for s/p left knee arthroscopy debridement prepatellar bursa and repair medial meniscus on 11/07 for 10 visits for ROM and strength Dr meade patient return to work light duty At this point I will be discontinuing this patient from physical therapy. I would be happy to see this patient again in the future if found appropriate by the physician. Thank you! Moisés Drake, PT, Cert MDT, OCS Balance/Gait/Functional tests Balance/Special Test Scores Lower Extremity Functional Score: 25
== END 2023-12-19 19:00 | disposition home or self-care (01) ==
LOC: PT 09:30
PROVIDERS: PCP Family Medicine; Referring Provider Orthopaedic Surgery Sports Medicine; Visit Provider Orthopaedic Surgery Sports Medicine
DX: S83.242D Other tear of medial meniscus, current injury, left knee, subsequent encounter (principal); M70.42 Prepatellar bursitis, left knee
CPT/HCPCS: 97110; 97161

== ENCOUNTER → 2025-08-12 | Outpatient (CLI) | payer OTHER, SELFPAY ==
--- NOTE | 2025-08-12 08:34 | RAD_ITS ---
PROCEDURE: LUMBAR SPINE 2 OR 3 VIEWS 08/12/2025 REASON FOR EXAM: LBP TECHNIQUE: Procedure Code: RADSPLL Modality: DX Procedure: LUMBAR SPINE 2 OR 3 VIEWS COMPARISON: None. RAD/Lumbar Spine 2 or 3 Views IMPRESSION: Limited imaging of the hips and sacroiliac joints show no significant abnormali ty. Degenerative changes of the lower lumbar spine noted, most prominent at L5-S1, where moderately severe disc space narrowing and vertebral body endplate reactive changes are seen. Lower lumbar posterior facet hypertrophy is seen. No evidence of spondylolysis or spondylolisthesis. No fracture site is seen. Reading Location: [place] [id number]
== END | disposition home or self-care (01) ==
LOC: RAD 08:31
PROVIDERS: PCP Family Medicine; Referring Provider Physician Assistant; Visit Provider Physician Assistant
DX: S39.012A Strain of muscle, fascia and tendon of lower back, initial encounter (principal)
CPT/HCPCS: 72100

== ENCOUNTER 2025-08-19 07:30 | Outpatient (RCR) | payer OTHER, SELFPAY ==
--- NOTE | 2025-08-18 08:43 | HP.PTEVAL ---
Patient's Visit Information Visit Information Visit Information: JOSE JOHNSON is a 45 year old M referred to Physical Therapy by SINAN Cox with a diagnosis of STRAIN OF MUSCLE ,FASIA AND TENDON OF LOWER BACK. Date of Evaluation: 08/18/25 Physical Therapist: Moisés Drake, PT, Cert MDT, OCS Visit Plan Frequency: 2x /Week Duration: 6 Weeks Plan: PT INTERVENTIONS DLS ,POSTURAL EX'S ,LE FLEXABILITY ,GRADED LUMBAR ROM ,LIFTING/POSTURE MODIFICATION ,AND MODALITIES Subjective Subjective: This 45 y/o male presents to physical therapy with lumbar pain. Patient injury to lumbar pain ~ 3weeks 10.14 at work stepped backwards and strained back . Patient felt like punched in back . As the day goes on pain worse. [facility] and did x-rays mod L5-S1 DDD. Medication muscle relaxer and prednisone which is done. Patient pain located symmetrical lumbar to LS . Pain described as electric shock /stabbing. Aggravating factors bending ,leaning backwards ,arching ,. Alleviating factors walking/standing. C/O paresthesia in quads. Coughing/sneezing -. Bowel/bladder-.Pain affects sleeping. Patient RTW light 20# lifting restriction. Sees DR john Wed.Patient condition affects RTW full duty and function. SOCIAL: VOCATION: Construction HOBBIES: Hunting/fishing Pain Bilateral Back: Pain Intensity (Out of 10): 6 Pain Intensity Range: 10 Objective Objective: POSTURE: mild forward posture PALPATION: tender paraspinals LS NEURO: c/o parestehesia/tingling thighs,reflexes L3-4,L4-5,L5-S1 GAIT: reciprocal pattern SYMMETRIES: align FLEXABILITY: hamstrings min loss MMT: quads/hams 4/5 ,hip flexion 4/5 pain ,ankle 4/5 LUMBAR ROM: flexion 25 % loss ,extension 75% loss pain ,side glides 50% Special Tests L/S Slump test left side: Negative L/S Slump test right side: Negative L/S Left Straight Leg Raise: Negative L/S Right Straight Leg Raise: Negative Lumbar Standing: Flexion - Mechanical Response: No effect Lumbar Standing: Flexion - Symptoms During Testing: Increases Lumbar Standing: Flexion - Symptoms After Testing: No worse Lumbar Standing: Extension - Mechanical Response: No effect Lumbar Standing: Extension - Symptoms During Testing: Increases Lumbar Standing: Extension - Symptoms After Testing: No worse Lumbar Standing: Right Side Glides - Mechanical Response: No effect Lumbar Standing: Right Side [place] - Symptoms During Testing: No effect Lumbar Standing: Right Side [place] - Symptoms After Testing: No effect Lumbar Standing: Left Side [place] - Mechanical Response: No effect Lumbar Standing: Left Side [place] - Symptoms During Testing: No effect Lumbar Standing: Left Side [place] - Symptoms After Testing: No effect Lumbar Lying: Flexion - Mechanical Response: No effect Lumbar Lying: Flexion - Symptoms During Testing: Increases Lumbar Lying: Flexion - Symptoms After Testing: No worse Lumbar Lying: Extension - Mechanical Response: No effect Lumbar Lying: Extension - Symptoms During Testing: Increases Lumbar Lying: Extension - Symptoms After Testing: No worse Balance/Special Test Scores Oswestry Low Back Score: 20 Goals Goal 1:: Patient to be I with HEP for back Goal Time Frame: 4-6 Weeks Goal 2:: Patient to improve lumbar ROM for function of recovery for job demands Goal Time Frame: 4-6 Weeks Goal 3:: Patient to improve back oswestry score by 5 points to improve QOL and function Goal Time Frame: 4-6 Weeks Goal 4:: Patient to demonstrated 70% improvement with less pain and improve function Goal Time Frame: 4-6 Weeks Goal 5:: Patient to improve ability to RTW w/o limitations Goal Time Frame: 4-6 Weeks Rehabilitation Potential Physical Therapy Diagnosis: This patient injury back at work with pain in back worse with and motion testing especially extension thus unable to RTW to full duty w/o restriction thus benefit from skilled PT Rehabilitation Potential: Good Anticipated Interventions Patient/Client Instruction: Educate patient on: Condition and Plan of Care For the Purpose of:: To decrease pain, To increase ROM, To improve muscle performance and motor function, To improve ability to perform ADL's, To increase tolerance to activity/condition/position, To improve ability of physical actions for home/community/work/leisure, To improve health of tissue, To decrease soft tissue restriction, To increase flexibility/ROM and To improve tolerance to ADL's Therapeutic Exercise to Include: Strength training, Postural training, Flexibilty training, Gait and locomotor training and Dynamic Lumbar Stabilization For the Purpose of:: To decrease pain, To increase ROM, To improve muscle performance and motor function, To increase tolerance to activity/condition/position, To improve ability of physical actions for home/community/work/leisure, To improve health of tissue, To decrease soft tissue restriction, To increase flexibility/ROM and To prevent re-injury TENS: Yes IF ES: Yes Cryotherapy (ice pack, ice massage): Yes Thermo therapy (hot pack): Yes Ultrasound (thermal/non thermal): Yes For the Purpose of:: To decrease pain, To increase ROM, To improve nutrient delivery to tissue, To increase oxygenation perfusion, To improve health of tissue and To decrease soft tissue restriction Text: Thank you for the opportunity to evaluate your patient. For Medicare and Medicare HMO plans, please review the plan of care and approve it. It will need to be FAXED BACK to us at [phone] for Medicare purposes. For Medicare only, by signing this I certify the plan of care. Please let me know if there are questions or concerns regarding this plan of care. Physician Signature: Date:
== END 2025-08-19 19:00 | disposition home or self-care (01) ==
LOC: PT 07:30
PROVIDERS: Referring Provider Physician Assistant; Visit Provider Physician Assistant
DX: S39.012D Strain of muscle, fascia and tendon of lower back, subsequent encounter (principal)
CPT/HCPCS: 97014; 97110; 97162; G0283